=== PATIENT | male | born 1985 | race African-American/Black ===

== ENCOUNTER 2020-06-22 00:10 | Emergency (ER) | payer MEDICAID, SELFPAY ==
[2020-06-22 00:11] VITALS: BP 191/94; PULSE 80; RESP 16; TEMP 36.9; O2SAT 99; BMI 39.5
--- NOTE | 2020-06-22 00:21 | ED.VIS.DENTA ---
History of Present Illness Chief Complaint: Dental Informant: Patient Onset: Yesterday Context: Sudden Onset Timing: Continuous Quality: Pain Location: Tooth #2 and 3 Current Severity: Mild Maximum Severity: Moderate Worsened by: Nothing specific Relieved by: - - Nothing Associated Symptoms: - - No fever, facial/jaw swelling, inability to open or close mouth completely Narrative: Patient is 34-year-old male visiting from [facility]. He states he has pain that started yesterday. Nothing alleviates or exacerbates his pain. He states he is here because there had no pharmacies are open. He denies fever, chills night sweats (rheumatic fever, heart murmur, SBE, or being immune suppressed. He denies allergies to antibiotics. His allergy to ibuprofen is not an allergy but an intolerance. He denies rash. He denies change in voice. Prior similar symptoms: Yes Recent Illness/Hospitalization: No - Past Medical History (1) Recurrent dental infection Status: Acute Past Medical History - Allergies and Home Meds Allergies/Adverse Reactions: Allergies ibuprofen Allergy (Verified 06/22/20 00:15) Upset Stomach Primary Care Physician: Sumeet Erickson,Out of [Primary Care Provider] - Prior records reviewed: No Surgical History: noncontributory Lives: With Family Smoking Status: Current every day smoker Alcohol: Rare Drugs: None Review of Systems General: Denies: Chills, Fever, Malaise ENT: Reports: - - No trismus. No dysphonia or dysphagia.. Denies: Rhinorrhea, Sore throat Cardiovascular: Denies: Chest pain, Palpitations Respiratory: Denies: Dyspnea, Dyspnea on exertion Gastrointestinal: Denies: Nausea, Vomiting Skin: Denies: Rash Neurological: Denies: Headache, Weakness Allergy: Denies: Swelling of the mouth, Swelling of the tongue Physical Exam Vital Signs/Narrative: Vital Signs Temp Pulse Resp BP Pulse Ox 06/22/20 00:11 98.4 F 80 16 191/94 H 99 Inital Vital Signs reviewed: Yes General: Well nourished, Well developed, Obese Head: Normocephalic, Atraumatic ENT: Dry mucous membranes, Moist mucous membranes, Nasal congestion, No rhinorrhea Mouth/Throat: Normal inspection lips/gums, Normal oral mucosa, No focal abscess, Normal posterior oropharynx, No sublingual edema, Normal Stensen's duct, Gingivitis. Negative for: No dental tenderness, Apthous ulcer, Dental trauma, Dental avulsion, Dentral fracture, Filling loss, Focal dental decay, Focal gum swelling, Trismus, Widespread dental decay Neck: Supple, No lymphadenopathy, Nontender, No JVD. Negative for: Anterior submandibular lymphadenopathy, Posterior submandibular lymphadenopathy, Anterior submental lymphadenopathy, Posterior submental lymphadenopathy, Soft tissue swelling, Submandibular soft tissue swelling, Submental soft tissue swelling Cardiovascular: Regular rate, Regular rhythm, No murmurs, Normal S1, Normal S2 Respiratory: No distress, CTA bilaterally, Chest nontender Skin: Normal color, No rash Neurological: Alert, Oriented x3, Cranial nerves II-XII grossly intact, Normal Strength, Normal Sensation Psychological: Normal affect Diagnostic/Tx/Re-eval - Medical Decision Making Presents with dental pain. The root is exposed. The gum is retracted. There is mild periodontal disease. There is no obvious abscess. There is no facial swelling. There is no trismus. Patient was treated with clindamycin and NSAID. He has no contraindication to NSAIDs i.e. diabetes, renal disease or peptic ulcer disease. ED Disposition - Plan for ED Patient: Disposition: Home or Assisted Living Diagnosis: Pain, dental Instructions: ED Dental Pain Prescriptions: Clindamycin [Cleocin] 300 mg PO 4X/DAY #56 cap Prescription Printed Naproxen [Naprosyn] 500 mg PO BID #14 tab Prescription Printed Referrals: [facility] [address] Doctor,Out of [Primary Care Provider] - Danuta Merritt [NON-STAFF] - As soon as possible
[2020-06-22] MEDS: Naproxen 250 MG Tablet 500 MG PO (00:36)
[2020-06-22] MEDS: Clindamycin HCl 150 MG Capsule 300 MG PO (00:37)
== END 2020-06-22 00:57 | disposition home or self-care (01) ==
LOC: ED 00:51
PROVIDERS: Emergency Provider Emergency Medicine
DX: K08.89 Other specified disorders of teeth and supporting structures (principal); F17.200 Nicotine dependence, unspecified, uncomplicated; Z88.6 Allergy status to analgesic agent; K05.6 Periodontal disease, unspecified; E66.9 Obesity, unspecified
CPT/HCPCS: 99283